=== PATIENT | male | born 1940 | race Caucasian/White ===

== ENCOUNTER 2018-05-13 07:44 | Emergency (ER) | payer MEDICARE, OTHER ==
--- NOTE | 2018-05-13 10:28 | RAD ---
LEFT CLAVICLE 2 VIEWS: Date: 05/13/18 HISTORY: 77-year-old male with history of left shoulder pain. FINDINGS: Postop midline sternotomy and left ICD. 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 There is some slight deformity of the distal third of the left clavicle, this has more the appearan ce of being an old, healed fracture. IMPRESSION: Degenerative changes left shoulder with slight deformity of the distal third of the left clavicle, maldonado ving more the appearance of an old, healed injury. No overt acute process. Correlate with any focal s ignificant point tenderness over the region of the lateral clavicle. POS: [facility]
== END 2018-05-13 08:44 | disposition home or self-care (01) ==
LOC: NAV ERS 07:44
DX: M25.512 Pain in left shoulder (principal); I25.10 Atherosclerotic heart disease of native coronary artery without angina pectoris; I10 Essential (primary) hypertension; Z79.01 Long term (current) use of anticoagulants; Z79.82 Long term (current) use of aspirin; Z79.899 Other long term (current) drug therapy

== ENCOUNTER 2019-08-30 11:21 | Emergency (ER) | payer MEDICARE, BC | END 2019-08-30 11:59 | disposition home or self-care (01) | LOC: NAV ERS 11:21 | DX: M25.512 Pain in left shoulder (principal); I25.10 Atherosclerotic heart disease of native coronary artery without angina pectoris; I10 Essential (primary) hypertension; Z79.899 Other long term (current) drug therapy; Z79.01 Long term (current) use of anticoagulants; Z79.82 Long term (current) use of aspirin | CPT/HCPCS: 99283 ==

== ENCOUNTER 2021-07-17 16:05 | Emergency (ER) | payer MEDICARE, BC ==
[2021-07-17] MEDS ORDERED: Boostrix 0.5 ML (Tdap) VIAL ONE (17:00)
[2021-07-17] MEDS ORDERED: Lidocaine 1% (PF) 30 ML VIAL ONE (17:00)
[2021-07-17] MEDS ORDERED: Bacitracin 1 PK ONE (17:19)
== END 2021-07-17 17:42 | disposition home or self-care (01) ==
LOC: NAV ERS 16:05
DX: S61.412A Laceration without foreign body of left hand, initial encounter (principal); Z23 Encounter for immunization; I10 Essential (primary) hypertension; I25.10 Atherosclerotic heart disease of native coronary artery without angina pectoris; W25.XXXA Contact with sharp glass, initial encounter
CPT/HCPCS: 12001; 90471; 90715; J2001

== ENCOUNTER 2021-08-02 14:01 | Emergency (ER) | payer MEDICARE, BC | END 2021-08-02 14:55 | disposition home or self-care (01) | LOC: NAV ERS 14:01 | DX: S61.412D Laceration without foreign body of left hand, subsequent encounter (principal); I10 Essential (primary) hypertension; I25.10 Atherosclerotic heart disease of native coronary artery without angina pectoris; Z79.01 Long term (current) use of anticoagulants; Z79.82 Long term (current) use of aspirin; Z79.899 Other long term (current) drug therapy ==

== ENCOUNTER 2023-10-20 14:18 | Emergency (ER) | payer MEDICARE, BC ==
[2023-10-20 15:19] LABS: #Lymphocytes 1.2 thou/uL (1.20-3.40); #Monocytes 0.7 thou/uL (0.11-0.59); %Basophils 0.6 % (0.0-1.0); %Eosinophils 0.1 % (0.0-10.0); %Monocytes 10.3 % (0.0-10.0); %Neutrophils 72.1 % (42.0-75.0); Hematocrit 40.5 % (42.0-52.0); Hemoglobin 14.3 g/dL (14.0-18.0); Mean Corpuscular HGB CONC 35.3 g/dL (32.0-36.0); Mean Corpuscular Hemoglobin 31.3 pg (27.0-31.0); Mean Corpuscular Volume 88.8 fl (78.0-98.0); Mean Platelet Volume 8.4 fL (7.4-10.4); Platelet Count 207 10x3/uL (130-400); RBC Distribution Width 10.6 % (11.5-14.5); Red Blood Cell (RBC) Count 4.56 mill/uL (4.70-6.10)
[2023-10-20 15:33] LABS: ALT (SGPT) 15 U/L (8-55); AST (SGOT) 21 U/L (5-34); Albumin 3.8 g/dL (3.4-4.8); Alkaline Phosphatase 100 U/L (40-110); Anion Gap 16 mmol/L (10-20); BUN (Urea Nitrogen) 14 mg/dL (8.4-25.7); Bilirubin, Total 1.2 mg/dL (0.2-1.2); Calc. Creatinine Clearance 0 mL/min (70-130); Calcium 8.9 mg/dL (7.8-10.44); Carbon Dioxide 20 mmol/L (23-31); Chloride 106 mmol/L (98-107); Estimated GFR 72; Globulin 3.6 g/dL (2.4-3.5); Glucose 133 mg/dL (83-110); Potassium 3.5 mmol/L (3.5-5.1); Protein, Total 7.4 g/dL (5.8-8.1); Sodium 138 mmol/L (136-145)
== END 2023-10-20 16:26 | disposition home or self-care (01) ==
LOC: NAV ERS 14:18
DX: I11.0 Hypertensive heart disease with heart failure (principal); I50.9 Heart failure, unspecified; I48.91 Unspecified atrial fibrillation; I25.10 Atherosclerotic heart disease of native coronary artery without angina pectoris; Z95.0 Presence of cardiac pacemaker; Z79.82 Long term (current) use of aspirin; Z79.01 Long term (current) use of anticoagulants; Z79.899 Other long term (current) drug therapy
CPT/HCPCS: 71045; 80053; 83880; 85025; 93005

== ENCOUNTER 2024-04-26 15:04 | Emergency (ER) | payer MEDICARE, BC | END 2024-04-26 15:51 | disposition home or self-care (01) | LOC: NAV ERS 15:04 | DX: S50.11XA Contusion of right forearm, initial encounter (principal); S60.211A Contusion of right wrist, initial encounter; I48.20 Chronic atrial fibrillation, unspecified; I10 Essential (primary) hypertension; Z79.01 Long term (current) use of anticoagulants; X58.XXXA Exposure to other specified factors, initial encounter | CPT/HCPCS: 99283 ==